=== PATIENT | female | born 1960 | race Caucasian/White ===

== ENCOUNTER 2016-02-23 07:29 | Emergency (ER) | payer SELFPAY ==
--- NOTE | 2016-02-23 09:35 | ER Document Report ---
ED General - General Information source: Patient TRAVEL OUTSIDE OF THE [place] IN LAST 30 DAYS: No - HPI Patient complains to provider of: cough Onset: Last week Onset/Duration: Persistent Associated symptoms: Body/muscle aches, Productive cough, Earache, Headache, Sinus pain/drainage - General Chief Complaint: Cough Stated Complaint: COUGH Notes: Patient is a 55-year-old female presenting to the emergency department concerned of the same symptoms that she was seen for here in the emergency department 02/17/2016. The symptoms include body aches, productive cough, headache/sinus pressure, and bilateral ear pain. Patient states the symptoms have not resolved themselves, and she just feels like going back to bed to rest instead of going into work. (ESAU CHRISTENSEN) - Related Data Allergies/Adverse Reactions: No Known Allergies Allergy (Verified 02/23/16 07:46) Past Medical History - General Information source: Patient - Social History Smoking Status: Never Smoker Chew tobacco use (# tins/day): No Frequency of alcohol use: None Drug Abuse: None Family History: None, Reviewed & Not Pertinent Patient has suicidal ideation: No Patient has homicidal ideation: No Past Surgical History: Reports: Hx Tonsillectomy, Hx Tubal Ligation - Immunizations Hx Diphtheria, Pertussis, Tetanus Vaccination: Yes - up to date Review of Systems - Review of Systems Constitutional: No symptoms reported EENT: See HPI, Ear pain, Sinus pressure Cardiovascular: No symptoms reported Respiratory: See HPI, Cough, Sputum Gastrointestinal: No symptoms reported Genitourinary: No symptoms reported Female Genitourinary: No symptoms reported Musculoskeletal: See HPI, Other - Body aches Skin: No symptoms reported Hematologic/Lymphatic: No symptoms reported Neurological/Psychological: See HPI, Headaches -: Yes All other systems reviewed and negative Physical Exam - Vital signs Interpretation: Normal - General General appearance: Alert - HEENT Head: Normocephalic, Atraumatic Eyes: Normal Pupils: PERRL Tympanic membrane: Normal Nasal: Clear rhinorrhea Pharynx: Erythema - Respiratory Respiratory status: No respiratory distress Chest status: Pain with cough Breath sounds: Nonproductive cough Chest palpation: Normal - Cardiovascular Rhythm: Regular Heart sounds: Normal auscultation Murmur: No - Abdominal Inspection: Normal Distension: No distension Bowel sounds: Normal Tenderness: Nontender Organomegaly: No organomegaly - Back Back: Normal, Nontender - Extremities General upper extremity: Normal inspection, Nontender, Normal color, Normal ROM , Normal temperature. No: Edema General lower extremity: Normal inspection, Nontender, Normal color, Normal ROM , Normal temperature. No: Edema - Neurological Neuro grossly intact: Yes Cognition: Normal [place] Coma Scale Eye Opening: Spontaneous [place] Coma Scale Verbal: Oriented [place] Coma Scale Motor: Obeys Commands [place] Coma Scale Total: 15 Speech: Normal - Psychological Associated symptoms: Normal affect, Normal mood - Skin Skin Temperature: Warm Skin Moisture: Dry Skin Color: Normal - Vital signs Vitals: Temp Pulse Resp BP Pulse Ox 97.9 F 78 20 117/72 98 02/23/16 07:44 02/23/16 07:44 02/23/16 07:44 02/23/16 07:44 02/23/16 07:44 (KRISTOFER PORTER) (ESAU CHRISTENSEN) Scribe Documentation - Scribe Written by Scribe:: Esau Christensen 02/23/2016 0934 acting as scribe for :: Theo
[2016-02-23 10:00] VITALS: BP 124/63
== END 2016-02-23 10:00 | disposition home or self-care (01) ==
LOC: ER 07:29
DX: J06.9 Acute upper respiratory infection, unspecified (principal); B97.89 Other viral agents as the cause of diseases classified elsewhere; R05 Cough; M79.1 Myalgia; R51 Headache; J34.89 Other specified disorders of nose and nasal sinuses; H92.03 Otalgia, bilateral
CPT/HCPCS: 99283